=== PATIENT | female | born 1990 | race Two or more races ===

== ENCOUNTER 2018-12-30 13:55 | Inpatient (IN) | payer OTHER ==
[~2018-12-30] VITALS: Ht 162.6 cm; Wt 72.6 kg
[~2018-12-30 13:55] MED LIST: MACROBID 100 M100 MG PO; TERBUTALINE SULF5 MG PO
[2019-01-24] MEDS ORDERED: PRENATAL TABLE1 EAC4 PO (20:07)
== END 2019-01-27 11:27 | DRG 807 ==
LOC: OB/GYN 01-06 15:30 → O/R 01-22 15:01 → OB/GYN 01-22 15:01 → LDR 01-24 19:41 → OB/GYN 01-25 01:55
PROVIDERS: ADMIT Specialist
PROC: 4A1HXCZ Monitoring of Products of Conception, Cardiac Rate, External Approach (ICD-10-PCS; 2019-01-24)
PROC: 10E0XZZ Delivery of Products of Conception, External Approach (ICD-10-PCS; principal; 2019-01-25)
PROC: 0UQMXZZ Repair Vulva, External Approach (ICD-10-PCS; 2019-01-25)
DX: O71.82 Other specified trauma to perineum and vulva (principal); Z37.0 Single live birth; Z3A.39 39 weeks gestation of pregnancy